=== PATIENT | female | born 1985 | race Caucasian/White ===

== ENCOUNTER 2025-02-13 13:56 | Emergency (ER) | payer SELFPAY ==
[2025-02-13 13:57] VITALS: BP 103/88; PULSE 107; RESP 16; TEMP 36.8; O2SAT 98; BMI 26.2
--- NOTE | 2025-02-13 14:32 | EKG12_ITS ---
Test Reason : Blood Pressure : */* mmHG Vent. Rate : 89 BPM Atrial Rate : 89 BPM P-R Int : 136 ms QRS Dur : 82 ms QT Int : 362 ms P-R-T Axes : 29 53 22 degrees QTcB Int : 440 ms Normal sinus rhythm Normal ECG Confirmed by OSIEL NGUYEN, NICHOLAS ([id number]), senior technical editor DORIS KRUSE ([id number]) on 02/14/2025 10:53:36 AM Referred By: AR Confirmed By: NICHOLAS CARTAGENA MD
--- NOTE | 2025-02-13 14:35 | EDS_ITS ---
HPI History of Present Illness Chief Complaint: Abn Labs Narrative Narrative: 39-year-old female who denies significant past medical history presents with her because of fevers that she has had for the last 12 days. She relates history that she started to not feel well on February 01. That was a . She noticed that she started having fevers. She takes Advil once a day. She denies any cough or shortness of breath, no dysuria or hematuria, no exacerbating or alleviating factors. She followed up with her primary care provider the following Wednesday and had laboratory work done. They noticed that on Wednesday she had a very low TSH, at 0.4. She continued to have fevers. She noticed that her neck was slightly swollen in the area of her thyroid. She had an ultrasound performed today at 1 PM, as an outpatient. She then proceeded to report to the emergency department regarding her continued fevers at the direction of the director furniture, Dr. Fajardo. [facility] Medical History Abnormal laboratory test Allergy/AdvReac Type Severity Reaction Status Date / Time No Known Allergies Allergy Verified 02/13/25 13:57 Social History Smoking Status: Never smoker ROS ROS ED ROS Narrative Review of systems positive for fevers as high as 101 ?F. Positive swelling of neck/thyroid. Mild difficulty swallowing/pain with swallowing. Denies cough or shortness of breath, no dysuria or hematuria. EXAM Physical Exam Narrative Exam Narrative: Afebrile. Vital signs noted. Nontoxic-appearing. HEENT examination does show mild swelling of thyroid area without crepitance. Neck soft and supple otherwise. Cardiovascular examination reveals mild tachycardia. Lungs clear to auscultation bilaterally. Abdomen soft nontender with positive bowel sounds. No guarding or rebound. Neurological examination nonfocal, nonlateralizing. No noted pedal edema. Const Vital Signs: 02/13/25 13:57 02/13/25 14:12 02/13/25 15:27 Temperature 98.2 F Temperature Source Oral Pulse Rate 107 H 84 Respiratory Rate 16 16 Respiratory Effort Normal Non-Labored Blood Pressure 103/88 H 105/58 L Blood Pressure Mean 93 73 Pulse Ox 98 98 Oxygen Delivery Method Room Air Room Air MDM MDM MDM Narrative Medical decision making narrative: Differential diagnosis includes but not limited to thyroiditis/thyroid storm versus dehydration versus other electrolyte abnormality. I reviewed her prior records. Her outpatient ultrasound has not been read as of yet. I will repeat a TSH. WBC count was obtained and reviewed. It is normal at 5.3, hemoglobin 11.9, hematocrit 36.0, platelet count normal at 371. CMP is significant for creatinine of 0.63, glucose 99. ALT slightly elevated 44 which I think is nonspecific, TSH is low at 0.007 with T4 of 15.7 and free T3 elevated at 9.1. Serum is negative. As I have not read the ultrasound as an outpatient, I did obtain CT of the soft tissue neck. On radiology report review, she has heterogeneous enhancement of the thyroid gland consistent with thyroiditis. Chest x-ray obtained to rule out pneumonia interpreted by myself independently shows no evidence of pneumonia or consolidation. I do not feel antibiotics are indicated. She is showing no clinical signs of a pneumonia or upper respiratory tract infection as well. EKG was obtained and interpreted by myself independently as normal sinus rhythm at 89 bpm without ectopy or acute ST changes. No STEMI, no tachycardia. In discussion with the patient, she was started on methimazole 5 mg by her primary care provider. I discussed the patient with endocrinology, Dr. Antonio Fajardo. She suggested increasing this to 10 mg daily, and her office will contact the patient tomorrow for close follow-up. It was not felt that she required antibiotics or admission to the hospital. Return instructions to the emergency department were reviewed. Disposition is discharged home in stable condition. History & Record Review Discussion w/independent historian: Patient Additional record(s) reviewed:: No prior records Lab Data Attestation: I reviewed the patient's lab results. Labs: Laboratory Results - last 24 hr 02/13/25 14:10 WBC 5.3 RBC 4.21 Hgb 11.9 L Hct 36.0 L MCV 85.5 MCH 28.3 MCHC 33.1 RDW Std Deviation 36.4 RDW Coeff of Hung 11.7 Plt Count 371 MPV 10.4 Immature Gran % (Auto) 0.200 Neut % (Auto) 42.7 L Lymph % (Auto) 41.4 H [place] % (Auto) 14.2 H Eos % (Auto) 0.9 Baso % (Auto) 0.6 Absolute Neuts (auto) 2.3 Absolute Lymphs (auto) 2.18 Nucleated RBC % 0 Sodium 138 Potassium 4.1 Chloride 102 Carbon Dioxide 25.6 Anion Gap 10 BUN 9 Creatinine 0.63 L Estim Creat Clear Calc 116.59 Est GFR (MDRD) Non-Af 114 BUN/Creatinine Ratio 15.0 Glucose 99 Calcium 9.5 Total Bilirubin 0.23 AST 27 ALT 44 H Alkaline Phosphatase 68 Total Protein 7.4 Albumin 3.9 Globulin 3.5 Albumin/Globulin Ratio 1.1 TSH 0.007 L Thyroxine (T4) 15.7 H Free T3 pg/dL 9.1 H Serum , Qual NEGATIVE Radiography Diagnostic Testing: Clinical Impression(s) from Imaging Studies Chest X-Ray 02/13/25 14:40 IMPRESSION: No Acute Findings. Reading Location: [address] Soft Tissue Neck CT 02/13/25 15:24 IMPRESSION: 1. Mildly heterogeneous enhancement of the thyroid gland. No mass. Non- specific. This can be seen with thyroiditis. Correlate with lab values. 2. No cervical mass or lymphadenopathy. 3. Partially imaged soft tissue density in the anterior superior mediastinum. 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 Non-specific. Nonemergent dedicated chest CT may be helpful. Thymoma has been associated with myasthenia gravis. Reading Location: [facility] Management Discussion w/another healthcare provider: [facility] (Dr. Antonio Fajardo, endocrinology) Discharge Plan Triage Chief Complaint: Abn Labs ED Provider: Jose Ramon Smiley Dx/Rx/DC Orders Clinical Impression: Thyroiditis, Fever, Low TSH level Instructions: Diagnosing a Thyroid Problem, Common Thyroid Problems, ED Fever Control (Adult) Primary Care Provider: Pearl Tejada Referrals: Pearl Tejada, [facility] [Primary Care Provider, Family Practice] Antonio Fajardo MD [[facility], Endocrinology] - 3-5 Days Activity Restrictions/Additional Instructions: Dr. Fajardo's office will contact you tomorrow for an appointment to be seen within the next few days. Increase your methimazole to 10 mg daily by mouth. Return with sustained high fever, new or worsening symptoms. Print Language: Citizen Of [place] Disposition Disposition: Home, Self Care
[2025-02-13] MEDS: 0.9% Normal Saline (1000mL) 1,000 ML 1000 ML IV (14:39)
[2025-02-13 14:40] LABS: Hematocrit 36.0 % (37-47); Hemoglobin 11.9 g/dL (12.0-15.0); Immature Granulocytes Count 0.010 X10^3/uL (0.0-0.0); Mean Corp Hgb Conc 33.1 g/dL (32-36); Mean Corpuscular Volume 85.5 fL (81-99); Mean Platelet Vol. 10.4 fl (6.2-12.0); NRBC Flagged by Analyzer 0 % (0-5); Platelet Count 371 K/mm3 (150-450); RBC Distribution Width CV 11.7 % (11.6-14.6); RBC Distribution Width SD 36.4 fl (35.1-43.9); Red Blood Count 4.21 M/mm3 (4.2-5.4); White Blood Count 5.3 K/mm3 (4.4-11.0)
--- NOTE | 2025-02-13 14:40 | RAD_ITS ---
PROCEDURE: CHEST 1 VIEW (PORTABLE) 02/13/2025 REASON FOR EXAM: FEVER TECHNIQUE: Frontal view of the chest. FINDINGS: The heart is normal in size. The lungs are clear. No acute osseous abnormalities. RAD/Chest 1 View (Portable) IMPRESSION: No Acute Findings. Reading Location: [id number]
[2025-02-13 15:00] LABS: Internal QC Validated? YES +Cl - CLEAR BKGD; Pregnancy, Serum, hCG Quali. NEGATIVE Negative; Record Kit Lot#, Serum Preg. 980607
--- NOTE | 2025-02-13 15:11 | ED.RN ---
called lab to inquire if thyroid labs received and yes.
[2025-02-13 15:12] LABS: AST(SGOT) 27 U/L (<=31); Alanine Aminotransfer ALT/SGPT 44 U/L (<=34); Albumin, Serum 3.9 g/dL (3.5-5.0); Alkaline Phosphatase 68 U/L (35-104); Anion Gap 10 (5-15); BUN 9 mg/dL (4-19); BUN/Creat Ratio 15.0 RATIO (10-20); Calcium,Total 9.5 mg/dL (7.6-11.0); Carbon Dioxide 25.6 mmol/L (21.0-32.0); Chloride 102 mmol/L (98-108); Estimated Creatinine Clearance 116.59 ml/min (50-250); Globulin 3.5 g/dL (2.2-4.2); Glucose 99 mg/dL (70-99); Potassium 4.1 mmol/L (3.3-5.1)
--- NOTE | 2025-02-13 15:24 | CT_ITS ---
PROCEDURE: SOFT TISSUE NECK WITH CONTRAST 02/13/2025 REASON FOR EXAM: THYROID SWELLING TECHNIQUE: Procedure Code: CTNEW Modality: CT Procedure: SOFT TISSUE NECK WITH CONTRAST CONTRAST: Isovue 370 VOLUME: 34 mL One or more dose reduction techniques were used (e.g., Automated exposure control, adjustment of the mA and/or kV according to patient size, use of iterative reconstruction technique). RADIATION DOSE SUMMARY: CTDlvol: 16 mGy DLP: 496 mGycm COMPARISON: None FINDINGS: Airway: Midline and patent. Salivary glands: Unremarkable. Lymph nodes: No cervical lymphadenopathy. Thyroid: Heterogeneous enhancement of the thyroid gland without discrete focal mass. Vasculature: A bovine arch is present, a normal variant. Blood vessels are otherwise patent. Orbits: Normal Paranasal sinuses and mastoids: Clear Lung apices: Clear Upper mediastinum: Soft tissue density in the anterior superior mediastinum is non-specific. The imaged portion is 2.5 x 1.5 cm. Bones: Straightened CT/Soft Tissue Neck WITH Contrast IMPRESSION: 1. Mildly heterogeneous enhancement of the thyroid gland. No mass. Non-speci fic. This can be seen with thyroiditis. Correlate with lab values. 2. No cervical mass or lymphadenopathy. 3. Partially imaged soft tissue density in the anterior superior mediastinum. 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 Non-specific. Nonemergent dedicated chest CT may be helpful. Thymom a has been associated with myasthenia gravis. Reading Location: [id number]
[2025-02-13 15:27] VITALS: BP 105/58; PULSE 84; RESP 16; O2SAT 98
[2025-02-13 15:43] LABS: Free T3 9.1 pg/mL (2.18-3.98); T4 Total, Thyroxin 15.7 ug/dL (4.8-13.9)
[2025-02-13 16:23] VITALS: BP 123/79; PULSE 90; RESP 18; TEMP 37.2; O2SAT 99
[2025-02-13 16:30] LABS: Mucous, Urine 0 SEEN /hpf (<or=2+)
[2025-02-13 16:34] LABS: Color, Urine Yellow (Yellow); Glucose, Dipstick Normal (Normal); Ketone-Dipstick Negative (Negative); Leukocyte Esterase-Dipstick Negative /ul (Negative); Nitrite-Dipstick Negative (Negative); Occult Blood-Urine 10 /ul (Negative); Protein-Dipstick Negative (Negative); Specific Gravity, Urine 1.010 (1.002-1.030); Urine Bilirubin Dipstick Negative (Negative)
[2025-02-13 17:02] LABS: Red Blood Cells-Urine 0-5 SEEN /hpf (0-5); Squamous Epithelial Cells - UA 0-5 SEEN /hpf (5-10)
== END 2025-02-13 16:34 | disposition home or self-care (01) ==
PROVIDERS: Emergency Provider Emergency Medicine; PCP Nurse Practitioner Family; Visit Provider Emergency Medicine
DX: E06.9 Thyroiditis, unspecified (principal); R50.9 Fever, unspecified
CPT/HCPCS: 70491; 71045; 80053; 81001; 84436; 84443; 84481; 84703; 85025; 93005; 99284; Q9967; A4216

== ENCOUNTER → 2025-02-13 | Outpatient (CLI) | payer SELFPAY ==
--- NOTE | 2025-02-13 13:03 | US_ITS ---
PROCEDURE: THYROID 02/13/2025 REASON FOR EXAM: ACUTE THYROIDITIS TECHNIQUE: Procedure Code: USTHY Modality: US Procedure: THYROID COMPARISON: Prior CT scan of the neck dated February 13, 2025. FINDINGS: Right thyroid lobe size: 4.8 cm by 2 cm x 1.9 cm Left thyroid lobe size: 4.1 cm 1.5 cm 1.7 cm cm Isthmus: 0.7 cm Background parenchymal echotexture is heterogeneous echotexture. There are no thyroid nodules seen. Increased vascularity. US/Thyroid IMPRESSION: Heterogeneous echotexture of both lobes of the thyroid gland without in the nod ular densities seen. RECOMMENDATION: Based on most suspicious nodule. Nodule size = largest diameter Only evaluate nodule if =>5 mm. Growth > 20% in 2 dimensions = worsening. Follow up to 4 nodules. Recommend biopsy for no more than 2 nodules. Reading Location: [place] [id number]
== END | disposition home or self-care (01) ==
PROVIDERS: PCP Nurse Practitioner Family; Referring Provider Nurse Practitioner Family; Visit Provider Nurse Practitioner Family
DX: E06.0 Acute thyroiditis (principal)
CPT/HCPCS: 76536

== ENCOUNTER → 2025-03-26 | Outpatient (CLI) | payer SELFPAY ==
--- NOTE | 2025-03-26 18:58 | CT_ITS ---
PROCEDURE: CHEST WITHOUT CONTRAST 03/26/2025 REASON FOR EXAM: PERSISTENT HYPERPLASIA OF THYMUS TECHNIQUE: Chest CT without contrast. Coronal and Sagittal reconstruction series were provided. One or more dose reduction techniques were used (e.g., Automated exposure control, adjustment of the mA and/or kV according to patient size, use of iterative reconstruction technique RADIATION DOSE SUMMARY: CTDlvol: 10.93 mGy DLP: 398.7 mGycm COMPARISON: 13 February 2025 FINDINGS: Hardware: None. Lymph nodes: No mediastinal lymphadenopathy. Mediastinal lymph nodes contain calcification which can be seen with chronic granulomatous disease. Subtle anterior superior mediastinal soft tissue fullness measuring up to 2.2 cm. Heart and Vasculature: No cardiomegaly or pericardial effusion. The aorta and superior vena cava are within normal limits. Coronary Artery Calcifications: Absent Lungs and Airways: The lungs are adequately aerated bilaterally without pleural effusion, pneumothorax, or focal airspace disease. Several calcified granulomas are scattered throughout. No suspicious nodule or mass. Upper Abdomen: 2.7 cm in length hepatic cyst. Several coarse splenic calcifications. Bones: CT/Chest without Contrast IMPRESSION: Coronary artery calcification (CAC) is absent 1. Subtle, 2.2 cm superior mediastinal soft tissue mass which could represent residual thymic tissue. Consider repeat examination in 4 months with use of contrast to document stabil ity. 2. 2.7 cm right hepatic cyst. 3. Pulmonary, mediastinal, and splenic chronic granulomatous disease. Reading Location: [id number]
--- OUTSIDE RECORDS SUMMARY | 2025-03-26 19:14 | XMS RPT_ITS | CCD ---
Author Organization [facility] Care Team Providers Care Finish Cleaner Name Role Phone SCOT YOUNG Attending Unavailable SCOT YOUNG Primary Care Unavailable SCOT YOUNG Admitting Unavailable ANA ROSA SANCHEZ Consulting Unavailable PROVIDER, UNKNOWN Consulting Unavailable ELIS GOULD Attending Unavailable ELIS GOULD Primary Care Unavailable ELIS GOULD Admitting Unavailable ANA ROSA SANCHEZ Consulting Unavailable PROVIDER, UNKNOWN Consulting Unavailable [place] SPLITTING MACHINE OPERATOR HELPER-C, Pearl Primary Care Physician Cas[place]ohm SPLITTING MACHINE OPERATOR HELPER-C, Pearl Attending Physician [place]m SPLITTING MACHINE OPERATOR HELPER-C, Pearl Referring Provider Jose Ramon Smiley MD Attending Physician Jose Ramon Smiley MD Emergency Department Physician Casbohm, Pearl Primary Care Unavailable Jose Ramon Smiley Attending Unavailable Casbohm, Pearl Primary Care Unavailable Casbohm, Pearl Attending Unavailable Casbohm, Pearl Referring Unavailable Casbohm, Pearl Primary Care Unavailable Casbohm, Pearl Attending Unavailable Casbohm, Pearl Referring Unavailable OMID NUÑEZ MD Attending Unavailable Allergies Allergy Classification Reported Allergen(s) Allergy Type Date of Onset Reaction(s) Facility (1 source) Aspirin Drug Allergy [facility] Repository Problems Problem Classification Problem Date Documented Da te Episodic/Chronic Fever of unknown origin (2 sources) Fever; Translations: [Fever, unspecified] Onset: 02-21-2025 02-21-2025 Episodic Other endocrine disorders (1 source) Persistent hyperplasia of thymus; 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-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 Other screening for suspected conditions (not mental disorders or infectious disease) (1 source) Decreased thyroid stimulating hormone level; Translations: [Other specified abnormal findings of blood chemistry] 02-21-2025 Episodic Thyroid disorders (2 sources) Thyroiditis; Translations: [Thyroiditis, unspecified] Onset: 02-26-2025 02-21-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 Results Test Name Value Interpretation Reference Range Facility Maria Guadalupe 03-12-2025 TSI <0.10 Normal 0.00-0.55 [facility] Comment on above: Result Comment: Perf ormed At: [facility] [address] [id number] Panchito Stout MD Ph:[phone] Performed By: #### F T4, ANEU, CMP, ADIFF, GFR, FT3, CBC, [id number] #### [address] [address] .Auto Diffon 03-09-2025 Basophil, Absolute 0.0 10 3/mcL Normal 0.0-0.3 [facility] Comment on above: Performed By: #### F T4, ANEU, CMP, ADIFF, GFR, FT3, CBC, 546122 #### [address] [address] Basophils/100 WBC (Bld) 0.6 % Normal 0.0-2.5 [facility] Comment on above: Performed By: #### F T4, ANEU, CMP, ADIFF, GFR, FT3, CBC, 195658 #### [address] [address] Eosinophil, Absolute 0.0 10 3/mcL Normal 0.0-0.7 [facility] Comment on above: Performed By: #### F T4, ANEU, CMP, ADIFF, GFR, FT3, CBC, 607425 #### [address] [address] Eosinophils/100 WBC (Bld) 1.6 % Normal 0.0-6.0 [facility] Comment on above: Performed By: #### F T4, ANEU, CMP, ADIFF, GFR, FT3, CBC, 017966 #### [address] [address] Lymphocyte, Absolute 1.2 10 3/mcL Normal 0.9-4.3 [facility] Comment on above: Performed By: #### F T4, ANEU, CMP, ADIFF, GFR, FT3, CBC, 909817 #### [address] [address] Lymphocytes/100 WBC (Bld) 39.0 % Normal 20.0-40.0 [facility] Comment on above: Performed By: #### F T4, ANEU, CMP, ADIFF, GFR, FT3, CBC, 775413 #### [address] [address] Monocyte, Absolute 0.4 10 3/mcL Normal 0.1-1.4 [facility] Comment on above: Performed By: #### F T4, ANEU, CMP, ADIFF, GFR, FT3, CBC, 600785 #### [address] [address] Monocytes/100 WBC (Bld) 12.3 % Normal 2.0-13.0 [facility] Comment on above: Performed By: #### F T4, ANEU, CMP, ADIFF, GFR, FT3, CBC, 323660 #### [address] [address] Neutrophils/100 WBC (Bld) 46.5 % Low 50.0-75.0 [facility] Comment on above: Performed By: #### F T4, ANEU, CMP, ADIFF, GFR, FT3, CBC, 212591 #### [address] [address] .GFRon 03-09-2025 Estimated Glomerular Filtration Rate 113 ml/min/1.73sqm Normal [facility] Comment on above: Result Comment: Stages of Chronic Kidney Disease (CKD) Stage Description eGFR(ml/min/1.73 sq.m.) CKD 1 Normal kidney function or >=90 normal kindney function with possible kidney damage (ex. Proteinuria) CKD 2 Kidney damage with mild loss 60-89 of kidney function CKD 3a Mild to moderate loss of kidney 45-59 function CKD 3b Moderate to severe loss of 30-44 of kindey function CKD 4 Severe loss of kidney function 15-29 CKD 5 Kidney failure <15 Note: (go live 2024) the eGFR calculation was updated to the 2020 CKD-EPI creatinine equation without a race factor to calculate the eGFR results. Performed By: #### F T4, ANEU, CMP, ADIFF, GFR, FT3, CBC, 384000 #### [place] [address] .NEUABSon 03-09-2025 Neutrophil, Absolute 1.4 10 3/mcL Low 2.3-8.1 [facility] Comment on above: Performed By: #### F T4, ANEU, CMP, ADIFF, GFR, FT3, CBC, 394179 #### [place] [address] CBCon 03-09-2025 Erythrocyte distribution width (RBC) [Ratio] 14.1 % Normal 11.5-15.5 [facility] Comment on above: Performed By: #### F T4, ANEU, CMP, ADIFF, GFR, FT3, CBC, 885263 #### [place] [address] Hematocrit (Bld) [Volume fraction] 40.8 % Normal 34.0-46.0 [facility] Comment on above: Performed By: #### F T4, ANEU, CMP, ADIFF, GFR, FT3, CBC, 048717 #### [place] [address] Hgb 13.4 G/dL Normal 12.0-16.0 [facility] Comment on above: Performed By: #### F T4, ANEU, CMP, ADIFF, GFR, FT3, CBC, 906912 #### [place] [address] MCH (RBC) [Entitic mass] 27.9 pg Normal 27.0-33.0 [facility] Comment on above: Performed By: #### F T4, ANEU, CMP, ADIFF, GFR, FT3, CBC, 625556 #### [place] [address] MCHC 32.8 G/dL Normal 32.0-36.0 [facility] Comment on above: Performed By: #### F T4, ANEU, CMP, ADIFF, GFR, FT3, CBC, 771978 #### [address] [address] MCV (RBC) [Entitic vol] 85.1 fL Normal 80.0-99.0 [facility] Comment on above: Performed By: #### F T4, ANEU, CMP, ADIFF, GFR, FT3, CBC, 126803 #### [place] [id number] Platelet 221 10 3/mcL Normal 150-450 [facility] Comment on above: Performed By: #### F T4, ANEU, CMP, ADIFF, GFR, FT3, CBC, 782466 #### [place] [id number] Platelet mean volume (Bld) [Entitic vol] 9.1 fL Normal 6.6-10.5 [facility] Comment on above: Performed By: #### F T4, ANEU, CMP, ADIFF, GFR, FT3, CBC, 983820 #### [place] [id number] RBC 4.79 10 6/mcL Normal 4.10-5.30 [facility] Comment on above: Performed By: #### F T4, ANEU, CMP, ADIFF, GFR, FT3, CBC, 347868 #### [place] [id number] WBC 3.1 10 3/mcL Low 4.5-10.8 [facility] Comment on above: Performed By: #### F T4, ANEU, CMP, ADIFF, GFR, FT3, CBC, 194769 #### [place] [id number] CMPon 03-09-2025 Albumin Level 3.8 G/dL Normal 3.2-4.8 [facility] Comment on above: Performed By: #### F T4, ANEU, CMP, ADIFF, GFR, FT3, CBC, 972055 #### [place] [id number] Albumin/Globulin [Mass ratio] 1.1 {ratio} Normal 0.9-1.6 [facility] Comment on above: Performed By: #### F T4, ANEU, CMP, ADIFF, GFR, FT3, CBC, 472331 #### [address] [address] ALP [Catalytic activity/Vol] 44 U/L Normal 38-126 [facility] Comment on above: Performed By: #### F T4, ANEU, CMP, ADIFF, GFR, FT3, CBC, 868786 #### [address] [address] ALT [Catalytic activity/Vol] 29 U/L Normal 10-49 [facility] Comment on above: Performed By: #### F T4, ANEU, CMP, ADIFF, GFR, FT3, CBC, 463928 #### [address] [address] AST [Catalytic activity/Vol] 20 U/L Normal 8-34 [facility] Comment on above: Performed By: #### F T4, ANEU, CMP, ADIFF, GFR, FT3, CBC, 967337 #### [address] [address] Bili Total 0.30 mg/dL Normal 0.20-1.20 [facility] Comment on above: Result Comment: Use of this assay is not recommended for patients undergoing treatment with eltrombopag due to the potential for falsely elevated results. Performed By: #### F T4, ANEU, CMP, ADIFF, GFR, FT3, CBC, 667601 #### [address] [address] BUN/Creatinine Ratio 10.8 ratio Normal 10.0-22.0 [facility] Comment on above: Performed By: #### F T4, ANEU, CMP, ADIFF, GFR, FT3, CBC, 867789 #### [address] [address] Calcium [Mass/Vol] 9.4 mg/dL Normal 8.7-10.4 [facility] Comment on above: Performed By: #### F T4, ANEU, CMP, ADIFF, GFR, FT3, CBC, 309716 #### [address] [address] Chloride [Moles/Vol] 104 mmol/L Normal 98-110 [facility] Comment on above: Performed By: #### F T4, ANEU, CMP, ADIFF, GFR, FT3, CBC, 885729 #### [address] [address] CO2 [Moles/Vol] 28 mmol/L Normal 22-32 [facility] Comment on above: Performed By: #### F T4, ANEU, CMP, ADIFF, GFR, FT3, CBC, 367519 #### [place] [address] Creatinine [Mass/Vol] 0.65 mg/dL Normal 0.50-1.20 [facility] Comment on above: Result Comment: Test ing performed on [employer] analyzer using enzymatic creatinine methodology. Performed By: #### F T4, ANEU, CMP, ADIFF, GFR, FT3, CBC, 446268 #### [place] [address] Electrolyte Balance 8.0 mEq/L Normal 4.0-15.0 [facility] Comment on above: Performed By: #### F T4, ANEU, CMP, ADIFF, GFR, FT3, CBC, 512616 #### [place] [id number] Globulin 3.4 G/dL Normal 2.5-4.2 [facility] Comment on above: Performed By: #### F T4, ANEU, CMP, ADIFF, GFR, FT3, CBC, 341009 #### [place] [address] Glucose [Mass/Vol] 92 mg/dL Normal 70-110 [facility] Comment on above: Performed By: #### F T4, ANEU, CMP, ADIFF, GFR, FT3, CBC, 981601 #### [place] [address] Potassium [Moles/Vol] 4.3 mmol/L Normal 3.5-5.0 [facility] Comment on above: Performed By: #### F T4, ANEU, CMP, ADIFF, GFR, FT3, CBC, 177196 #### [address] [address] Sodium [Moles/Vol] 140 mmol/L Normal 136-145 [facility] Comment on above: Performed By: #### F T4, ANEU, CMP, ADIFF, GFR, FT3, CBC, 447149 #### [address] [address] Total Protein 7.2 G/dL Normal 5.7-8.2 [facility] Comment on above: Performed By: #### F T4, ANEU, CMP, ADIFF, GFR, FT3, CBC, 910990 #### [place] [address] Urea nitrogen [Mass/Vol] 7.0 mg/dL Low 8.0-22.0 [facility] Comment on above: Performed By: #### F T4, ANEU, CMP, ADIFF, GFR, FT3, CBC, 918379 #### [place] [id number] FT3on 03-09-2025 Free T3 [Mass/Vol] 2.37 pg/mL Normal 2.30-4.20 [facility] Comment on above: Performed By: #### F T4, ANEU, CMP, ADIFF, GFR, FT3, CBC, 574529 #### [address] [address] FT4on 03-09-2025 Free T4 [Mass/Vol] 0.60 ng/dL Low 0.89-1.76 [facility] Comment on above: Result Comment: No te - New Reference Range in effect 19 Performed By: #### F T4, ANEU, CMP, ADIFF, GFR, FT3, CBC, 373542 #### [place] [address] LABORATORYOrdered By: SYSTEM SYSTEM on 03-09-2025 Albumin BCP dye [Mass/Vol] 3.8 G/dL Normal 3.2 - 4.8 G/dL ADM SS Albumin/Globulin [Mass ratio] 1.1 {ratio} Normal 0.9 - 1.6 ratio AH ADM SS ALP [Catalytic activity/Vol] 44 U/L Normal 38 - 126 U/L ADM SS ALT No additional P-5'-P [Catalytic activity/Vol] 29 U/L Normal 10 - 49 U/L ADM SS AST [Catalytic activity/Vol] 20 U/L Normal 8 - 34 U/L ADM SS Basophils (Bld) [#/Vol] 0.0 103/mcL Normal 0.0 - 0.3 10^3/mcL Workflow SS Basophils/100 WBC (Bld) 0.6 % Normal 0.0 - 2.5 % Workflow SS Bilirubin [Mass/Vol] 0.30 mg/dL Normal 0.20 - 1.20 mg/dL ADM SS Comment on above: Interpretive Data: U se of this assay is not recommended for patients undergoing treatment with eltrombopag due to the potential for falsely elevated results. Calcium [Mass/Vol] 9.4 mg/dL Normal 8.7 - 10. 4 mg/dL ADM SS Chloride [Moles/Vol] 104 mmol/L Normal 98 - 11 0 mEq/L ADM SS CO2 [Moles/Vol] 28 mmol/L Normal 22 - 32 mEq/L ADM SS Creatinine [Mass/Vol] 0.65 mg/dL Normal 0.50 - 1.20 mg/dL ADM SS Comment on above: Interpretive Data: T esting performed on [employer] analyzer using enzymatic creatinine methodology. Electrolyte Balance 8.0 mEq/L Normal 4.0 - 15 .0 mEq/L ADM SS Eosinophils (Bld) [#/Vol] 0.0 103/mcL Normal 0.0 - 0.7 10^3/mcL Workflow SS Eosinophils/100 WBC (Bld) 1.6 % Normal 0.0 - 6.0 % Workflow SS Erythrocyte distribution width (RBC) [Ratio] 14.1 % Normal 11.5 - 15.5 % Workflow SS Free T3 [Mass/Vol] 2.37 pg/mL Normal 2.30 - 4. 20 pg/mL ADM SS Free T4 [Mass/Vol] 0.60 ng/dL Low 0.89 - 1. 76 ng/dL ADM SS Comment on above: Interpretive Data: * *Note - New Reference Range in effect 19 Globulin 3.4 G/dL Normal 2.5 - 4.2 G/dL AH ADM SS GLOMERULAR FILTRATION RATE/1.73 SQ M.PREDICTED:ARVRAT:PT:SE R/PLAS/BLD:QN:CREATININE -BASED FORMULA (CKD-EPI 2020) 113 ml/min/1.73sqm Invalid Interpretation Code Chemistry S Comment on above: Interpretive Data: Stages of Chronic Kidney Disease (CKD) Stage Description eGFR(ml/min/1.73 sq.m.) CKD 1 Normal kidney function or >=90 normal kindney function with possible kidney damage (ex. Proteinuria) CKD 2 Kidney damage with mild loss 60-89 of kidney function CKD 3a Mild to moderate loss of kidney 45-59 function CKD 3b Moderate to severe loss of 30-44 of kindey function CKD 4 Severe loss of kidney function 15-29 CKD 5 Kidney failure <15 Note: (go live 2024) the eGFR calculation was updated to the 2020 CKD-EPI creatinine equation without a race factor to calculate the eGFR results. Glucose [Mass/Vol] 92 mg/dL Normal 70 - 110 mg/dL AH ADM SS Hematocrit (Bld) [Volume fraction] 40.8 % Normal 34.0 - 46.0 % AH Workflow SS Hemoglobin (Bld) [Mass/Vol] 13.4 G/dL Normal 12.0 - 16.0 G/dL AH Workflow SS Lymphocytes (Bld) [#/Vol] 1.2 103/mcL Normal 0.9 - 4.3 10^3/mcL AH Workflow SS Lymphocytes/100 WBC (Bld) 39.0 % Normal 20.0 - 40.0 % AH Workflow SS MCH (RBC) [Entitic mass] 27.9 pg Normal 27. 0 - 33.0 pg AH Workflow SS MCHC 32.8 G/dL Normal 32.0 - 36.0 G/dL AH Workflow SS MCV (RBC) [Entitic vol] 85.1 fL Normal 80.0 - 99.0 fL AH Workflow SS Monocytes (Bld) [#/Vol] 0.4 103/mcL Normal 0.1 - 1.4 10^3/mcL AH Workflow SS Monocytes/100 WBC (Bld) 12.3 % Normal 2.0 - 13.0 % AH Workflow SS Neutrophils (Bld) [#/Vol] 1.4 103/mcL Low 2.3 - 8.1 10^3/mcL AH Workflow SS Neutrophils/100 WBC (Bld) 46.5 % Low 50.0 - 75.0 % AH Workflow SS Platelet mean volume (Bld) [Entitic vol] 9.1 fL Normal 6.6 - 10.5 fL AH Workflow SS Platelets (Bld) [#/Vol] 221 103/mcL Normal 150 - 450 10^3/mcL AH Workflow SS Potassium [Moles/Vol] 4.3 mmol/L Normal 3.5 - 5.0 mEq/L AH ADM SS Protein [Mass/Vol] 7.2 G/dL Normal 5.7 - 8.2 G/dL AH ADM SS RBC (Bld) [#/Vol] 4.79 106/mcL Normal 4.10 - 5.3 0 10^6/mcL AH Workflow SS Sodium [Moles/Vol] 140 mmol/L Normal 136 - 145 mEq/L ADM SS Urea nitrogen [Mass/Vol] 7.0 mg/dL Low 8.0 - 22.0 mg/dL AH ADM SS Urea nitrogen/Creatinine [Mass ratio] 10.8 ratio Normal 10.0 - 22.0 ratio AH ADM SS WBC (Bld) [#/Vol] 3.1 103/mcL Low 4.5 - 10.8 10^3/mcL AH Workflow SS 12 Lead EKGon 02-13-2025 12 Lead EKG [facility] Cardiovascular Services [address] [place] [address] 12 Lead EKG 02/13/25 1438 MR#: [id number] Acct: [id number] Name: MILA GARCIA Rep #: [id number] : 1985 39 From: Devin Vaughn MD Attending Dr: Status: DEP ER Ordering Dr: Jose Ramon Smiley MD Date: 02/13/25 Location: ED Sex: F C Admitted: Test Reason : Blood Pressure : */* mmHG Vent. Rate : 89 BPM Atrial Rate : 89 BPM P-R Int : 136 ms QRS Dur : 82 ms QT Int : 362 ms P-R-T Axes : 29 53 22 degrees QTcB Int : 440 ms Normal sinus rhythm Normal ECG Confirmed by OSIEL NGUYEN, DEVIN ([id number]), editor greeting card DORIS KRUSE ([id number]) on 02/14/2025 10:53:36 AM Referred By: AR Confirmed By: DEVIN VAUGHN MD 02/14/25 6336 Date Devin Vaughn MD CC: JADEN Tejada; Dr. Jose Ramon Smiley MD Signed Normal [facility] Absolute lymphocyte countOrd ered By: Jose Ramon Smiley on 02-13-2025 Lymphocytes Auto (Unsp spec) [#/Vol] 2.18 10*3/uL 0.83-4.51 [facility] Absolute neutrophil countOrd ered By: Jose Ramon Smiley on 02-13-2025 Neutrophils (Bld) [#/Vol] 2.3 10*3/uL 2.0-7.7 [facility] Anion gap in Serum or Plasma Ordered By: Jose Ramon Smiley on 02-13-2025 Anion gap [Moles/Vol] 10 mmol/L 09-14 [facility] Automated lymphocyte count a s percentage of total leukocytesOrdered By: Jose Ramon Smiley on 02-13-2025 Lymphocytes/100 WBC Auto (Unsp spec) 41.4 % High 19-41 [facility] BUN/creatinine ratioOrdered By: Jose Ramon Smiley on 02-13-2025 Urea nitrogen/Creatinine [Mass ratio] 15.0 mg/mg 10 [facility] Basophil percentageOrdered B y: Jose Ramon Smiley on 02-13-2025 Basophils/100 WBC (Bld) 0.6 % 0-1 [facility] Bilirubin Test strip Ql (U)O rdered By: Jose Ramon Smiley on 02-13-2025 Bilirubin Ql (U) Negative Negative [facility] Bilirubin, totalOrdered By: Jose Ramon Smiley on 02-13-2025 Bilirubin [Mass/Vol] 0.23 mg/dL 0.00-1.30 [facility] CBC W/Diff, Automatedon 01-31 Absolute Lymph 2.18 X10 3/uL Normal 0.83-4.51 [facility] Comment on above: Performed By: #### L 100.0100, L500.4050, L501.9520, L700.6800 #### [facility] [address] [place], [address] Absolute Neut 2.3 X10 3/uL Normal 2.0-7.7 [facility] Comment on above: Performed By: #### L 100.0100, L500.4050, L501.9520, L700.6800 #### [facility] [address] [place], [address] Basophils/100 WBC (Bld) 0.6 % Normal 0-1 [facility] Comment on above: Performed By: #### L 100.0100, L500.4050, L501.9520, L700.6800 #### [facility] [address] [place], [address] Eosinophils/100 WBC (Bld) 0.9 % Normal 0-5 [facility] Comment on above: Performed By: #### L 100.0100, L500.4050, L501.9520, L700.6800 #### [facility] [address] [place], [address] Erythrocyte distribution width (RBC) [Ratio] 11.7 % Normal 11.6-14.6 [facility] Comment on above: Performed By: #### L 100.0100, L500.4050, L501.9520, L700.6800 #### [facility] [address] [place], [address] Hematocrit (Bld) [Volume fraction] 36.0 % Low 37-47 [facility] Comment on above: Performed By: #### L 100.0100, L500.4050, L501.9520, L700.6800 #### [facility] [address] [place], [address] Hemoglobin (Bld) [Mass/Vol] 11.9 g/dL Low 12.0-15.0 [facility] Comment on above: Performed By: #### L 100.0100, L500.4050, L501.9520, L700.6800 #### [facility] [address] [place], [address] IG% 0.200 Normal 0.0-0.9 [facility] Comment on above: Result Comment: IG% - Immature Granulocytes (promyelocytes, myelocytes and metamyelocytes) > 1% indicates that a LEFT SHIFT is Present. Performed By: #### L 100.0100, L500.4050, L501.9520, L700.6800 #### [facility] [address] [place], [address] Lymphocytes/100 WBC (Bld) 41.4 % High 19-41 [facility] Comment on above: Performed By: #### L 100.0100, L500.4050, L501.9520, L700.6800 #### [facility] [address] [place], [address] MCH (RBC) [Entitic mass] 28.3 pg Normal 27.0-32.0 [facility] Comment on above: Performed By: #### L 100.0100, L500.4050, L501.9520, L700.6800 #### [facility] [address] [place], [address] MCHC (RBC) [Mass/Vol] 33.1 g/dL Normal 32-36 [facility] Comment on above: Performed By: #### L 100.0100, L500.4050, L501.9520, L700.6800 #### [facility] [address] [place], [address] MCV (RBC) [Entitic vol] 85.5 fL Normal 81-99 [facility] Comment on above: Performed By: #### L 100.0100, L500.4050, L501.9520, L700.6800 #### [facility] [address] [place], [address] Monocytes/100 WBC (Bld) 14.2 % High 0-10 [facility] Comment on above: Performed By: #### L 100.0100, L500.4050, L501.9520, L700.6800 #### [facility] [address] [place], [address] Neutrophils/100 WBC (Bld) 42.7 % Low 47-70 [facility] Comment on above: Performed By: #### L 100.0100, L500.4050, L501.9520, L700.6800 #### [facility] [address] [place], [address] Nucleated RBC (Bld) [#/Vol] 0 10*3/uL Normal 0-5 [facility] Comment on above: Performed By: #### L 100.0100, L500.4050, L501.9520, L700.6800 #### [facility] [address] [place], [address] Platelet mean volume (Bld) [Entitic vol] 10.4 fL Normal 6.2-12.0 [facility] Comment on above: Performed By: #### L 100.0100, L500.4050, L501.9520, L700.6800 #### [facility] [address] [place], [address] Platelets (Bld) [#/Vol] 371 10*3/uL Normal 150-450 [facility] Comment on above: Performed By: #### L 100.0100, L500.4050, L501.9520, L700.6800 #### [facility] [address] [place], [address] RBC (Bld) [#/Vol] 4.21 10*6/uL Normal 4.2-5.4 [facility] Comment on above: Performed By: #### L 100.0100, L500.4050, L501.9520, L700.6800 #### [facility] [address] [place], [address] RDW SD 36.4 fl Normal 35.1-43.9 [facility] Comment on above: Performed By: #### L 100.0100, L500.4050, L501.9520, L700.6800 #### [facility] [address] [place], [address] WBC (Bld) [#/Vol] 5.3 10*3/uL Normal 4.4-11.0 [facility] Comment on above: Performed By: #### L 100.0100, L500.4050, L501.9520, L700.6800 #### [facility] [address] [place], [address] Carbon dioxide, total [Moles /volume] in Central venous bloodOrdered By: Jose Ramon Smiley on 02-13-2025 CO2 [Moles/Vol] 25.6 mmol/L 21.0-32.0 [facility] Chest 1 View (Portable)on Chest 1 View (Portable) [facility] Services [address] [place] [address] Chest 1 View (Portable) MR#: [id number] Acct: [id number] Name: MILA GARCIA Rep #: [id number] : 1985 F 39 From: Ji Colin MD PCP: JADEN Lee Status: REG ER Study: Chest 1 View (Portable) Date of Exam: 02/13/25 Exam# [id number] Ordering Dr: Jose Ramon Smiley MD PROCEDURE: CHEST 1 VIEW (PORTABLE) 02/13/2025 REASON FOR EXAM: FEVER TECHNIQUE: Frontal view of the chest. FINDINGS: The heart is normal in size. The lungs are clear. No acute osseous abnormalities. RAD/Chest 1 View (Portable) IMPRESSION: No Acute Findings. Reading Location: [id number] CC: JADEN Tejada; Dr. Jose Ramon Smiley MD Waiter/Waitress Informal: Signed Normal [facility] Chloride assayOrdered By: Jones Smiley on 02-13-2025 Chloride [Moles/Vol] 102 mmol/L 98-108 [facility] Comprehensive Metabolic Prof ilon 02-13-2025 Albumin [Mass/Vol] 3.9 g/dL Normal 3.5-5.0 [facility] Comment on above: Performed By: #### L 100.0100, L500.4050, L501.9520, L700.6800 #### [facility] [address] [place], [address] Albumin/Globulin [Mass ratio] 1.1 {ratio} Normal 0.9-2.4 [facility] Comment on above: Performed By: #### L 100.0100, L500.4050, L501.9520, L700.6800 #### [facility] [address] [place], [address] ALK PHOS 68 U/L Normal 35-104 [facility] Comment on above: Performed By: #### L 100.0100, L500.4050, L501.9520, L700.6800 #### [facility] [address] [place], [address] ALT [Catalytic activity/Vol] 44 U/L High <=34 [facility] Comment on above: Performed By: #### L 100.0100, L500.4050, L501.9520, L700.6800 #### [facility] [address] [place], [address] AST [Catalytic activity/Vol] 27 U/L Normal <=31 [facility] Comment on above: Performed By: #### L 100.0100, L500.4050, L501.9520, L700.6800 #### [facility] [address] [place], [address] Bilirubin [Mass/Vol] 0.23 mg/dL Normal 0.00-1.30 [facility] Comment on above: Performed By: #### L 100.0100, L500.4050, L501.9520, L700.6800 #### [facility] [address] [place], [address] BUN/CRE 15.0 RATIO Normal 10-20 [facility] Comment on above: Performed By: #### L 100.0100, L500.4050, L501.9520, L700.6800 #### [facility] [address] [place], [address] Calcium [Mass/Vol] 9.5 mg/dL Normal 7.6-11.0 [facility] Comment on above: Performed By: #### L 100.0100, L500.4050, L501.9520, L700.6800 #### [facility] [address] [place], [address] Chloride [Moles/Vol] 102 mmol/L Normal 98-108 [facility] Comment on above: Performed By: #### L 100.0100, L500.4050, L501.9520, L700.6800 #### [facility] [address] [place], [address] CO2 [Moles/Vol] 25.6 mmol/L Normal 21.0-32.0 [facility] Comment on above: Performed By: #### L 100.0100, L500.4050, L501.9520, L700.6800 #### [facility] [address] [place], [address] Creatinine [Mass/Vol] 0.63 mg/dL Low 0.70-1.20 [facility] Comment on above: Performed By: #### L 100.0100, L500.4050, L501.9520, L700.6800 #### [facility] [address] [place], [address] ECRCL 116.59 ml/min Normal 50-250 [facility] Comment on above: Performed By: #### L 100.0100, L500.4050, L501.9520, L700.6800 #### [facility] [address] [place], [address] GAP 10 Normal 5-15 [facility] Comment on above: Performed By: #### L 100.0100, L500.4050, L501.9520, L700.6800 #### [facility] [address] [place], [address] GFR/1.73 sq M.predicted among non-blacks MDRD (S/P/Bld) [Vol rate/Area] 114 mL/min/{1.73_m2} Normal >60 [facility] Comment on above: Result Comment: mL/m in/1.73m2 CKD-EPI Creatinine Equation (2020) Performed By: #### L 100.0100, L500.4050, L501.9520, L700.6800 #### [facility] [address] [place], [address] Globulin (S) [Mass/Vol] 3.5 g/dL Normal 2.2-4.2 [facility] Comment on above: Performed By: #### L 100.0100, L500.4050, L501.9520, L700.6800 #### [facility] [address] [place], [address] Glucose [Mass/Vol] 99 mg/dL Normal 70-99 [facility] Comment on above: Performed By: #### L 100.0100, L500.4050, L501.9520, L700.6800 #### [facility] [address] [place], [address] Potassium [Moles/Vol] 4.1 mmol/L Normal 3.3-5.1 [facility] Comment on above: Performed By: #### L 100.0100, L500.4050, L501.9520, L700.6800 #### [facility] [address] [place], [address] Sodium [Moles/Vol] 138 mmol/L Normal 133-145 [facility] Comment on above: Performed By: #### L 100.0100, L500.4050, L501.9520, L700.6800 #### [facility] [address] [place], [address] T PROT 7.4 g/dL Normal 5.9-8.4 [facility] Comment on above: Performed By: #### L 100.0100, L500.4050, L501.9520, L700.6800 #### [facility] [address] [place], [address] Urea nitrogen [Mass/Vol] 9 mg/dL Normal 4-19 [facility] Comment on above: Performed By: #### L 100.0100, L500.4050, L501.9520, L700.6800 #### [facility] [address] [place], [address] Electrocardiogram reportOrde red By: Devin Vaughn on 02-13-2025 EKG study [facility] Cardiovascular Services [address] [place] [address] 12 Lead EKG 02/13/25 1438 MR#: [id number] Acct: [id number] Name: MILA GARCIA Rep #:[id number] : 1985 39 From: Devin Vaughn MD Attending Dr: Status: DEP E R Ordering Dr: Jose Ramon Smiley MD Date: Location: ED Sex: F C Admitted: Test Reason : Blood Pressure : */* mmHG Vent. Rate : 89 BPM Atrial Rate : 89 BPM P-R Int : 136 ms QRS Dur : 82 ms QT Int : 362 ms P-R-T Axes : 29 53 22 degrees QTcB Int : 440 ms Normal sinus rhythm Normal ECG Confirmed by DEVIN VAUGHN MD ([id number]), editor greeting card DORIS KRUSE ([id number]) on 510:53:36 AM Referred By: AR Confirmed By: DEVIN VAUGHN MD 02/14/25 1053 Date _ Devin Vaughn MD CC: JADEN Tejada; Dr. Jose Ramon Smiley MD ~ Signed [facility] Other Emergency Department Summary on 02-13-2025 Emergency Department Summary [facility] Medical Records Department [address] [place] [address] Emergency Department Summary 02/13/25 MR#: [id number] Acct: [id number] Name: MILA GARCIA Rep #: [id number] : 1985 39 From: Jose Ramon Smiley MD PCP: JADEN Lee Status:REG ER Location: ED HPI History of Present Illness Chief Complaint: Abn Labs Narrative Narrative: 39-year-old female who denies significant past medical history presents with her because of fevers that she has had for the last 12 days. She relates history that she started to not feel well on February 01. That was a . She noticed that she started having fevers. She takes Advil once a day. She denies any cough or shortness of breath, no dysuria or hematuria, no exacerbating or alleviating factors. She followed up with her primary care provider the following Wednesday and had laboratory work done. They noticed that on Wednesday she had a very low TSH, at 0.4. She continued to have fevers. She noticed that her neck was slightly swollen in the area of her thyroid. She had an ultrasound performed today at 1 PM, as an outpatient. She then proceeded to report to the emergency department regarding her continued fevers at the direction of the high lighter, Dr. Fajardo. [facility] Medical History Abnormal laboratory test Allergy/AdvReac Type Severity Reaction Status Date / Time No Known Allergies Allergy Verified 02/13/25 13:57 Social History Smoking Status: Never smoker ROS ROS ED ROS Narrative Review of systems positive for fevers as high as 101 ???F. Positive swelling of neck/thyroid. Mild difficulty swallowing/pain with swallowing. Denies cough or shortness of breath, no dysuria or hematuria. EXAM Physical Exam Narrative Exam Narrative: Afebrile. Vital signs noted. Nontoxic-appearing. HEENT examination does show mild swelling of thyroid area without crepitance. Neck soft and supple otherwise. Cardiovascular examination reveals mild tachycardia. Lungs clear to auscultation bilaterally. Abdomen soft nontender with positive bowel sounds. No guarding or rebound. Neurological examination nonfocal, nonlateralizing. No noted pedal edema. Const Vital Signs: 02/13/25 13:57 02/13/25 14:12 02/13/25 15:27 Temperature 98.2 F Temperature Source Oral Pulse Rate 107 H 84 Respiratory Rate 16 16 Respiratory Effort Normal Non-Labored Blood Pressure 103/88 H 105/58 L Blood Pressure Mean 93 73 Pulse Ox 98 98 Oxygen Delivery Method Room Air Room Air MDM MDM MDM Narrative Medical decision making narrative: Differential diagnosis includes but not limited to thyroiditis/thyroid storm versus dehydration versus other electrolyte abnormality. I reviewed her prior records. Her outpatient ultrasound has not been read as of yet. I will repeat a TSH. WBC count was obtained and reviewed. It is normal at 5.3, hemoglobin 11.9, hematocrit 36.0, platelet count normal at 371. CMP is significant for creatinine of 0.63, glucose 99. ALT slightly elevated 44 which I think is nonspecific, TSH is low at 0.007 with T4 of 15.7 and free T3 elevated at 9.1. Serum is negative. As I have not read the ultrasound as an outpatient, I did obtain CT of the soft tissue neck. On radiology report review, she has heterogeneous enhancement of the thyroid gland consistent with thyroiditis. Chest x-ray obtained to rule out pneumonia interpreted by myself independently shows no evidence of pneumonia or consolidation. I do not feel antibiotics are indicated. She is showing no clinical signs of a pneumonia or upper respiratory tract infection as well. EKG was obtained and interpreted by myself independently as normal sinus rhythm at 89 bpm without ectopy or acute ST changes. No STEMI, no tachycardia. In discussion with the patient, she was started on methimazole 5 mg by her primary care provider. I discussed the patient with endocrinology, Dr. Antonio Fajardo. She suggested increasing this to 10 mg daily, and her office will contact the patient tomorrow for close follow-up. It was not felt that she required antibiotics or admission to the hospital. Return instructions to the emergency department were reviewed. Disposition is discharged home in stable condition. History Record Review Discussion w/independent historian: Patient Additional record(s) reviewed:: No prior records Lab Data Attestation: I reviewed the patient's lab results. Labs: Laboratory Results - last 24 hr 02/13/25 14:10 WBC 5.3 RBC 4.21 Hgb 11.9 L Hct 36.0 L MCV 85.5 MCH 28.3 MCHC 33.1 RDW Std Deviation 36.4 RDW Coeff of Hung 11.7 Plt Count 371 MPV 10.4 Immature Gran % (Auto) 0.200 Neut % (Auto (more content not included)... Normal [facility] Eosinophil percentageOrdered By: Jose Ramon Smiley on 02-13-2025 Eosinophils/100 WBC (Bld) 0.9 % 0-5 [facility] Erythrocyte distribution wid th ratioOrdered By: Jose Ramon Smiley on 02-13-2025 Erythrocyte distribution width (RBC) [Ratio] 11.7 % 11.6-14.6 [facility] Erythrocyte distribution wid th standard deviationOrdered By: Jose Ramon Smiley on 02-13-2025 Erythrocyte distribution width (RBC) [Ratio] 36.4 fl 35.1-43.9 [facility] Free T3on 02-13-2025 Free T3 [Mass/Vol] 9.1 pg/mL High 2.18-3.98 [facility] Comment on above: Performed By: #### L 100.0100, L500.4050, L501.9520, L700.6800 #### [facility] [address] [place], [address] Free [id number] By: Jose Ramon castillo on 02-13-2025 Free T3 [Mass/Vol] 9.1 pg/mL High 2.18-3.98 [facility] Glomerular filtration rate ( GFR) estimation/1.73 sq m using serum, plasma, or whole bOrdered By: Jose Ramon Smiley on 02-13-2025 GFR/1.73 sq M.predicted among non-blacks MDRD (S/P/Bld) [Vol rate/Area] 114 mL/min/{1.73_m2} >60 [facility] Comment on above: mL/min/1.73m2 CKD-EP I Creatinine Equation (2020) Hematocrit Auto (Bld) [Volum e fraction]Ordered By: Jose Ramon Smiley on 02-13-2025 Hematocrit (Bld) [Volume fraction] 36.0 % Low 37-47 [facility] Hemoglobin measurementOrdere d By: Jose Ramon Smiley on 02-13-2025 Hemoglobin (Bld) [Mass/Vol] 11.9 g/dL Low 12.0-15.0 [facility] Immature granulocytes/100 WB C Auto (Bld)Ordered By: Jose Ramon Smiley on 02-13-2025 Immature granulocytes/100 WBC (Bld) 0.200 % 0.0-0.9 [facility] Comment on above: IG% - Immature Granu locytes (promyelocytes, myelocytes and metamyelocytes) > 1% indicates that a LEFT SHIFT is Present. Ketones Test strip Ql (U)Ord ered By: Jose Ramon Smiley on 02-13-2025 Ketones Ql (U) Negative Negative [facility] - Chemistry and C hemistry - challengeOrdered By: Jose Ramon Smiley on 02-13-2025 AST [Catalytic activity/Vol] 27 U/L <32 [facility] MCV (mean corpuscular volume ) determinationOrdered By: Jose Ramon Smiley on 02-13-2025 MCV (RBC) [Entitic vol] 85.5 fL 81-99 [facility] Mean corpuscular hemoglobin (MCH) determinationOrdered By: Jose Ramon Smiley on 02-13-2025 MCH (RBC) [Entitic mass] 28.3 pg 27.0-32.0 [facility] Mean corpuscular hemoglobin concentration (MCHC) determinationOrdered By: Jose Ramon Smiley on 02-13-2025 MCHC (RBC) [Mass/Vol] 33.1 g/dL 32-36 [facility] Mean platelet volume determi nationOrdered By: Jose Ramon Smiley on 02-13-2025 Platelet mean volume (Bld) [Entitic vol] 10.4 fL 6.2-12.0 [facility] Microscopic analysis of urin e for red blood cells (RBC)Ordered By: Jose Ramon Smiley on 02-13-2025 Microscopic analysis of urine for red blood cells (RBC) 0-5 SEEN /hpf 0-5 [facility] Monocyte percentageOrdered B y: Jose Ramon Smiley on 02-13-2025 Monocytes/100 WBC (Bld) 14.2 % High 0-10 [facility] Mucus LM Ql (Urine sed)Order ed By: Jose Ramon Smiley on 02-13-2025 Mucus Ql (Urine sed) 0 SEEN /hpf [facility] Neutrophil percentageOrdered By: Jose Ramon Smiley on 02-13-2025 Neutrophils/100 WBC (Bld) 42.7 % Low 47-70 [facility] Nitrite Test strip Ql (U)Ord ered By: Jose Ramon Smiley on 02-13-2025 Nitrite Ql (U) Negative Negative [facility] Nucleated red blood cell per centageOrdered By: Jose Ramon Smiley on 02-13-2025 Nucleated RBC/100 WBC (Bld) [Ratio] 0 % 0-5 [facility] Platelet countOrdered By: Jones Smiley on 02-13-2025 Platelets (Bld) [#/Vol] 371 10*3/uL 150-450 [facility] Potassium measurement (mass/ volume)Ordered By: Jose Ramon Smiley on 02-13-2025 Potassium (Unsp spec) [Mass/Vol] 4.1 mmol/L 3.3-5.1 [facility] ,Serum,hCG Quali.on 02-13-2025 HCG, SERUM QUAL Negative Normal [facility] Comment on above: Performed By: #### L 100.0100, L500.4050, L501.9520, L700.6800 #### [facility] [place], [address] Protein Test strip Ql (U)Ord ered By: Jose Ramon Smiley on 02-13-2025 Protein Ql (U) Negative Negative [facility] RBC Auto (Bld) [#/Vol]Ordere d By: Jose Ramon Smiley on 02-13-2025 RBC (Bld) [#/Vol] 4.21 10*6/uL 4.2-5.4 [facility] Serum beta-hCG test, qualita tiveOrdered By: Jose Ramon Smiley on 02-13-2025 Beta HCG ( test) Ql Negative [facility] Serum creatinine measurement (mass/volume)Ordered By: Jose Ramon Smiley on 02-13-2025 Creatinine [Mass/Vol] 0.63 mg/dL Low 0.70-1.20 [facility] Serum globulin measurementOr dered By: Jose Ramon Smiley on 02-13-2025 Globulin (S) [Mass/Vol] 3.5 g/dL 2.2-4.2 [facility] Serum glucose measurement (m ass/volume)Ordered By: Jose Ramon Smiley on 02-13-2025 Glucose [Mass/Vol] 99 mg/dL 70-99 [facility] Serum or plasma alanine maldonado otransferase (ALT) measurementOrdered By: Jose Ramon Smiley on 02-13-2025 ALT [Catalytic activity/Vol] 44 U/L High <35 [facility] Serum or plasma albumin kay urement (mass/volume)Ordered By: Jose Ramon Smiley on 02-13-2025 Albumin [Mass/Vol] 3.9 g/dL 3.5-5.0 [facility] Serum or plasma albumin/glob ulin mass ratioOrdered By: Jose Ramon Smiley on 02-13-2025 Albumin/Globulin [Mass ratio] 1.1 {ratio} 0.9-2.4 [facility] Serum or plasma alkaline anu sphatase measurementOrdered By: Jose Ramon Smiley on 02-13-2025 ALP [Catalytic activity/Vol] 68 U/L 35-104 [facility] Serum or plasma calcium kay urement (mass/volume)Ordered By: Jose Ramon Smiley on 02-13-2025 Calcium [Mass/Vol] 9.5 mg/dL 7.6-11.0 [facility] Serum or plasma urea nitroge n measurement (mass/volume)Ordered By: Jose Ramon Smiley on 02-13-2025 Urea nitrogen [Mass/Vol] 9 mg/dL 4-19 [facility] Sodium levelOrdered By: Jose Ramon Smiley on 02-13-2025 Sodium [Moles/Vol] 138 mmol/L 133-145 [facility] Soft Tissue Neck WITH Contra ston 02-13-2025 Soft Tissue Neck WITH Contrast [facility] Imaging Services [address] [place], [place] [address] Soft Tissue Neck WITH Contrast MR#: [id number] Acct: [id number] Name: MILA GARCIA Rep #: [id number] : 1985 F 39 From: Maycol Lieberman MD PCP: JADEN Lee Status: REG ER Study: Soft Tissue Neck WITH Contrast Date of Exam: Exam# [id number] Ordering Dr: Jose Ramon Smiley MD PROCEDURE: SOFT TISSUE NECK WITH CONTRAST 02/13/2025 REASON FOR EXAM: THYROID SWELLING TECHNIQUE: Procedure Code: CTNEW Modality: CT Procedure: SOFT TISSUE NECK WITH CONTRAST CONTRAST: Isovue 370 VOLUME: 34 mL One or more dose reduction techniques were used (e.g., Automated exposure control, adjustment of the mA and/or kV according to patient size, use of iterative reconstruction technique). RADIATION DOSE SUMMARY: CTDlvol: 16 mGy DLP: 496 mGycm COMPARISON: None FINDINGS: Airway: Midline and patent. Salivary glands: Unremarkable. Lymph nodes: No cervical lymphadenopathy. Thyroid: Heterogeneous enhancement of the thyroid gland without discrete focal mass. Vasculature: A bovine arch is present, a normal variant. Blood vessels are otherwise patent. Orbits: Normal Paranasal sinuses and mastoids: Clear Lung apices: Clear Upper mediastinum: Soft tissue density in the anterior superior mediastinum is non-specific. The imaged portion is 2.5 x 1.5 cm. Bones: Straightened CT/Soft Tissue Neck WITH Contrast IMPRESSION: 1. Mildly heterogeneous enhancement of the thyroid gland. No mass. Non-specific. This can be seen with thyroiditis. Correlate with lab values. 2. No cervical mass or lymphadenopathy. 3. Partially imaged soft tissue density in the anterior superior mediastinum. 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 Non-specific. Nonemergent dedicated chest CT may be helpful. Thymoma has been associated with myasthenia gravis. Reading Location: [id number] CC: SPLITTING MACHINE OPERATOR HELPER-C Pearl Tejaad; Dr. Jose Ramon Smiley MD Waiter/Waitress Informal: Signed Normal [facility] Squamous epithelial cells de tection in urine sediment by light microscopyOrdered By: Jose Ramon Smiley on 02-13-2025 Epithelial cells.squamous LM Ql (Urine sed) 0-5 SEEN /hpf 5-10 [facility] T4 Total, Thyroxinon 025 T4 [Mass/Vol] 15.7 ug/dL High 4.8-13.9 [facility] Comment on above: Performed By: #### L 100.0100, L500.4050, L501.9520, L700.6800 #### [facility] [address] [facility] [place], [address] TSH DL <= 0.005 mIU/L QnOrde red By: Jose Ramon Smiley on 02-13-2025 TSH Qn 0.007 uIU/mL Low 0.300-4.200 [facility] Thyroidon 02-13-2025 Thyroid [facility] Imaging Services [address] [place] [address] Thyroid MR#: [id number] Acct: [id number] Name: MILA GARCIA Rep #: [id number] : 1985 F 39 From: Isaac flores MD PCP: JADEN Lee Status: REG CLI Study: Thyroid Date of Exam: 02/13/25 Exam# [id number] Ordering Dr: Pearl Tejada PROCEDURE: THYROID 02/13/2025 REASON FOR EXAM: ACUTE THYROIDITIS TECHNIQUE: Procedure Code: USTHY Modality: US Procedure: THYROID COMPARISON: Prior CT scan of the neck dated February 13, 2025. FINDINGS: Right thyroid lobe size: 4.8 cm by 2 cm x 1.9 cm Left thyroid lobe size: 4.1 cm 1.5 cm 1.7 cm cm Isthmus: 0.7 cm Background parenchymal echotexture is heterogeneous echotexture. There are no thyroid nodules seen. Increased vascularity. US/Thyroid IMPRESSION: Heterogeneous echotexture of both lobes of the thyroid gland without in the nodular densities seen. RECOMMENDATION: Based on most suspicious nodule. Nodule size = largest diameter Only evaluate nodule if =>5 mm. Growth > 20% in 2 dimensions = worsening. Follow up to 4 nodules. Recommend biopsy for no more than 2 nodules. Reading Location: [place] [address] CC: JADEN Tejada Waiter/Waitress Informal: Signed Normal [facility] Thyroid Stim Hormone (TSH)on 02-13-2025 TSH 0.007 uIU/mL Low 0.300-4.200 [facility] Comment on above: Performed By: #### L 100.0100, L500.4050, L501.9520, L700.6800 #### [facility] [address] [place], [place], [id number] ThyroxineOrdered By: Jose Ramon carlos on 02-13-2025 T4 [Mass/Vol] 15.7 ug/dL High 4.8-13.9 [facility] Total proteinOrdered By: Chio Smiley on 02-13-2025 Protein [Mass/Vol] 7.4 g/dL 5.9-8.4 [facility] Urinalysis, Completeon 02-13 EPI,SQUAMOUS 0-5 SEEN Normal -10 [facility] Comment on above: Order Comment: CLEAN CATCH Performed By: #### L 400.0001 #### [facility] [address] [place], [place], [id number] [phone] 0-5 SEEN Normal 0-5 [facility] Comment on above: Order Comment: CLEAN CATCH Performed By: #### L 400.0001 #### [facility] [address] [place], [address] WBC 0-5 SEEN Normal 0-5 [facility] Comment on above: Order Comment: CLEAN CATCH Performed By: #### L 400.0001 #### [facility] [address] [place], [address] BACTERIA 0 SEEN Normal None Seen [facility] Comment on above: Order Comment: CLEAN CATCH Performed By: #### L 400.0001 #### [facility] [address] [place], [address] Mucus Ql (Urine sed) 0 SEEN Normal [facility] Comment on above: Order Comment: CLEAN CATCH Performed By: #### L 400.0001 #### [facility] [address] [place], [address] Urine clarityOrdered By: Chio Smiley on 02-13-2025 Clarity (U) Clear Clear [facility] Urine color determinationOrd ered By: Jose Ramon Smiley on 02-13-2025 Color (U) Yellow Yellow [facility] Urine glucose detectionOrder ed By: Jose Ramon Smiley on 02-13-2025 Glucose Ql (U) Normal mg/dl Normal [facility] Urine leukocyte esterase det ection by dipstickOrdered By: Jose Ramon Smiley on 02-13-2025 Leukocyte esterase Test strip Ql (U) Negative Negative [facility] Urine pHOrdered By: Jose Ramon barboza on 02-13-2025 pH (U) 6.0 [pH] 5.0 - 8.0 [facility] Urine sediment bacteria coun t by microscopy (number/high power field)Ordered By: Jose Ramon Smiley on 02-13-2025 Bacteria LM.HPF (Urine sed) [#/Area] 0 /[HPF] None Seen [facility] Urine specific gravity measu rementOrdered By: Jose Ramon Smiley on 02-13-2025 Specific gravity (U) [Rel density] 1.010 1.002-1.030 [facility] Urine urobilinogen measureme ntOrdered By: Jose Ramon Smiley on 02-13-2025 Urobilinogen Ql (U) Normal mg/dl Normal [facility] White blood cell (WBC) count Ordered By: Jose Ramon Smiley on 02-13-2025 WBC (Bld) [#/Vol] 5.3 10*3/uL 4.4-11.0 [facility] White blood cell countOrdere d By: Jose Ramon Smiley on 02-13-2025 White blood cell count 0-5 SEEN /hpf 0-5 [facility] PELVIS 1 or 2 VIEWSon 2023 PELVIS 1 or 2 VIEWS [place] [id number] Patient: MILA GARCIA Phone#: : 1985 Age: 38 Gender: F Pt. Type: Out Account: [id number] Location: Ordering: SCOT YENEL Exam Date: 02/28/2024/10:46 Family Phys: ANA ROSA SANCHEZ Charge Code: 024774 Physician: Eaton Order #: [id number] Dose#: PROCEDURE: X-RAY PELVIS AP COMPARISON: None. INDICATIONS: Mechanical low back pain. FINDINGS: BONES: At the level of S4 the distal sacrum is dorsally displaced 0.5 cm. There is associated callus formation at this level. This appears to represent a chronic healed fracture. SOFT TISSUES: Negative. No visible soft tissue swelling. EFFUSION: None visible. OTHER: Negative. CONCLUSION: 1. Remote mid sacral fracture. Distal sacrum is dorsally subluxed. There is evidence of interval healing with callus formation. Dictated by: Leana Rivera MD on 02/28/2024 at 12:26 Approved by: Leana Rivera MD on 02/28/2024 at 12:29 Normal [facility] SACRUM AND COCCYXon 02-28-20 SACRUM AND COCCYX [address] [address] Patient: MILA GARCIA Phone#: : 1985 Age: 38 Gender: F Pt. Type: Out Account: [id number] Location: Ordering: SCOT YOUNG Exam Date: 02/28/2024/10:49 Family Phys: ANA ROSA DANIEL Charge Code: 582158 Physician: Eaton Order #: [id number] Dose#: PROCEDURE: X-RAY SACRUM AND COCCYX MIN 2 VIEWS COMPARISON: None. INDICATIONS: Mechanical low back pain. FINDINGS: BONES: Evidence of remote fracture of the mid sacrum. At the level of S4 the posterior aspect of the distal sacrum is dorsally displaced 0.5 cm. There is evidence of bridging callus formation indicating remote trauma. There is degenerative osteophyte spurring at the sacrococcygeal junction. PARASPINOUS: Negative. No paraspinous abnormality is seen. OTHER: Negative. CONCLUSION: 1. Evidence of mid sacral fracture. Distal sacrum is dorsally subluxed. There is bridging callus formation. Dictated by: Laena Rivera MD on 02/28/2024 at 12:29 Approved by: Leana Rivera MD on 02/28/2024 at 12:35 Normal [facility] MR LUMBAR SP WO CONTRASTon 0 11-15-2023 MR LUMBAR SP WO CONTRAST [place] [address] Patient: MILA GARCIA Phone#: : 1985 Age: 38 Gender: F Pt. Type: Out Account: [id number] Location: Ordering: DR. ELIS GOULD D.C. Exam Date: 11/15/2023/8:01 Family Phys: Charge Code: [id number] Physician: Eaton Order #: [id number] Dose#: PROCEDURE: MRI LUMBAR SPINE WITHOUT CONTRAST COMPARISON: None. INDICATIONS: Lumbar sacral pain TECHNIQUE: A variety of imaging planes and parameters were utilized for visualization of suspected pathology. FINDINGS: PARASPINAL AREA: Normal with no visible mass. BONES: No fracture, pars defect, or osseous lesion. Mildly patchy marrow pattern. Correlate with history of anemia or smoking. CORD/CAUDA EQUINA: Normal caliber, contour, and signal intensity. LUMBAR DISC LEVELS: L1-L2: No significant disc/facet abnormality, spinal stenosis, or foraminal stenosis. L2-L3: No significant disc/facet abnormality, spinal stenosis, or foraminal stenosis. L3-L4: No significant disc/facet abnormality, spinal stenosis, or foraminal stenosis. L4-L5: Bony hypertrophy is present at the articular facettes. L5-S1: Disc space narrowing is present. There is disc degeneration. There is minimal retrolisthesis at L5 on S1. Broad-based disc bulging is present. There is mild bilateral foraminal narrowing. CONCLUSION: 1. L5-S1 broad-based disc bulge. There is disc degeneration. Mild bilateral foraminal narrowing is present. Dictated by: Dory Contreras MD on 11/16/2023 at 14:07 Approved by: Dory Contreras MD on 11/16/2023 at 14:10 Normal [facility] US BREAST RIGHT LIMITEDon US BREAST RIGHT LIMITED ORIGINAL FROM: [facility] [address] [place] [id number] PROCEDURE FOR: MILA GARCIA [address] [place] [address] Home: PID#: [id number] Exam#: [id number] : 1985 Age: 36 TO: STEF MAXWELL MARKETING AND COMMUNICATIONS OFFICER GEL COAT SPRAYER [address] [place], [place] [address] EXAMINATION: ULTRASOUND OF THE right breast 11/10/2021 8:44 am TECHNIQUE: Color flow and real-time targeted ultrasound of the upper outer quadrant were performed. COMPARISON: Mammogram November 05, 2021 HISTORY: ORDERING SYSTEM PROVIDED HISTORY: Reason for Exam: CALL BACK MAMMO FINDINGS: There is a 1.5 cm mixed echogenic oval mass with relatively circumscribed margins within the right breast at 9 o'clock middle to posterior depth. This probably correlates with the mammographic finding. No intrinsic vascularity. IMPRESSION: The 1.5 cm mixed echogenic oval mass within the right breast may represent fat necrosis and appears probably benign. A three-month follow-up right breast ultrasound and right diagnostic mammogram is recommended. BIRADS: MAMMOGRAM BI-RADS: 3: Probably benign RECALL: 3 month follow-up RECALL TYPE: Right mammo+US LETTER SENT: Probably Benign BI-RADS 3 Interpreted by: Tory Cagle MD Preliminary Report By: Tory Cagle MD Electronically signed By Tory Cagle MD Dictated Date: 11/10/2021 7:38:00 PM Prelim Date: 11/10/2021 7:41:59 PM Sign Date: 11/10/2021 7:41:59 PM Ordering Provider: PIERRE REFERRING Glass Cutting Machine Feeder: CINDY [place] RT(R) RDMS letter sent: Probably Benign BI-RADS 3 Ultrasound BI-RADS: 3 Probably benign Normal [facility] ([place]) MA MAMMOGRAM SCREENING BILAT ERAL W/TOMOon 11-05-2021 MA MAMMOGRAM SCREENING BILATERAL W/ZAKIA ORIGINAL FROM: [facility] [address] [place] [address] PROCEDURE FOR: MILA GARCIA [address] [place] [address] Home: PID#: [id number] Exam#: [id number] : 1985 Age: 36 TO: STEF MAXWELL APRN GEL COAT SPRAYER [address] [place], [place] [address] EXAMINATION: SCREENING DIGITAL BILATERAL MAMMOGRAM WITH TOMOSYNTHESIS, 11/05/2021 2:31 pm TECHNIQUE: Screening mammography of the bilateral breasts was performed with tomosynthesis. 2D standard and 3D tomosynthesis combination imaging performed through both breasts in the MLO and CC projection. Computer aided detection was utilized in the interpretation of this exam. COMPARISON: None. HISTORY: Breast cancer screening. FINDINGS: BREAST DENSITY: Heterogeneously dense There is a 1.6 cm round mass in the right breast at 9 o'clock posterior depth. This is confirmed on additional tomographic views. There are no other significant masses, calcifications, or other findings. IMPRESSION: The 1.6 cm round mass in the right breast at 9 o'clock appears indeterminate. A right breast ultrasound is recommended. We will contact the patient to arrange for the exam. BIRADS: MAMMOGRAM BI-RADS: 0: Needs addl evaluation RECALL: immediate RECALL TYPE: Right US LETTER SENT: Abnormal-Needs additional work up BI-RADS 0 Interpreted by: Jae Boyd MD Preliminary Report By: Jae Boyd MD Electronically signed By Jae Boyd MD Dictated Date: 11/05/2021 3:44:01 PM Prelim Date: 11/05/2021 3:48:16 PM Sign Date: 11/05/2021 3:48:16 PM Ordering Provider: PIERRE REFERRING CLINICAL: BASELINE. Glass Cutting Machine Feeder: SHILPA CALDERON RT(R) (M) letter sent: Abnormal-Needs additional work up BI-RADS 0 Mammogram BI-RADS: 0 Indeterminate Normal [facility] ([place]) Vital Signs Date Time Vital Sign Value Performing Clinician Yary ricardo 02-13-2025 16:23-0400 Body temperature 99 [degF] Pearl Casbohm SPLITTING MACHINE OPERATOR HELPER-C Work Phone: [facility] 02-13-2025 16:23-0400 Diastolic blood pressure 79 mm[Hg] Pearl Casbohm SPLITTING MACHINE OPERATOR HELPER-C Work Phone: [facility] 02-13-2025 16:23-0400 Heart rate 90 /min Pearl Casbohm SPLITTING MACHINE OPERATOR HELPER-C Work Phone: [facility] 02-13-2025 16:23-0400 Respiratory rate 18 /min Pearl Casbohm SPLITTING MACHINE OPERATOR HELPER-C Work Phone: [facility] 02-13-2025 16:23-0400 SaO2% (BldA) [Mass fraction] 99 % Eparl Casbohm SPLITTING MACHINE OPERATOR HELPER-C Work Phone: [facility] 02-13-2025 16:23-0400 Systolic blood pressure 123 mm[Hg] Pearl Casbohm SPLITTING MACHINE OPERATOR HELPER-C Work Phone: [facility] 02-13-2025 13:57-0400 Body height 165.1 cm Pearl Casbohm SPLITTING MACHINE OPERATOR HELPER-C Work Phone: [facility] 02-13-2025 13:57-0400 Body mass index (BMI) [Ratio] 26.2 kg/m2 Pearl Stanbohm SPLITTING MACHINE OPERATOR HELPER-C Work Phone: [facility] 02-13-2025 13:57-0400 Body weight 71.62 kg Pearl Stanbohm SPLITTING MACHINE OPERATOR HELPER-C Work Phone: [facility] Encounters Encounter Date Encounter Type Care Provider Facility Start: 03-26-2025 ambulatory Pearl Willishm Facility: [facility] Start: 03-09-2025 End: 03-09-2025 ambulatory OMID NUÑEZ MD Facility:A Start: 03-09-2025 End: 03-09-2025 Patient encounter procedure OMID NUÑEZ MD [facility] Start: 02-13-2025 End: 02-13-2025 Emergency department patient visit Dr. Jose Ramon Smiley MD -Emergency Department Work Phone: Start: 02-13-2025 End: 02-13-2025 Patient encounter procedure Pearl Tejada SPLITTING MACHINE OPERATOR HELPER-C -Ultrasound [facility] Work Phone: Start: 02-13-2025 End: 02-13-2025 ambulatory Pearl Standennissonia Facility:[facility] Start: 02-28-2024 End: 02-28-2024 [facility] Start: 11-15-2023 End: 11-15-2023 ambulatory ELIS Milian GOULD [facility] [place] Start: 11-10-2021 End: 11-10-2021 Patient encounter procedure PHY WO ID REFERRING [facility] Start: 11-05-2021 End: 11-05-2021 Patient encounter procedure PHY WO ID REFERRING [facility] Procedures Date Procedure Procedure Detail Performing Clinician Start: 02-13-2025 Urnls dip stick/tabl et reagent auto microscopy Pearl Stanbohm SPLITTING MACHINE OPERATOR HELPER-C Work Phone: Start: 02-13-2025 CT of soft tissues o f neck with contrast Pearl Tejada SPLITTING MACHINE OPERATOR HELPER-C Work Phone: Start: 02-13-2025 Plain chest X-ray Pearl Tejada SPLITTING MACHINE OPERATOR HELPER-C Work Phone: Start: 02-13-2025 Estimated creatinine clearance Pearl Tejada SPLITTING MACHINE OPERATOR HELPER-C Work Phone: Start: 02-13-2025 US scan of thyroid Froy Tejada SPLITTING MACHINE OPERATOR HELPER-C Work Phone: Plan of Treatment Date Care Activity Detail Author Start: 02-13-2025 [facility] Patient Education Diagnosing a T hyroid Problem Common Thyroid Problems ED Fever Control (Adult) [facility] Work Phone: Payers Date Payer Category Payer Self-pay 2025 Unknown [id number] 1985 Unknown [id number] [id number] [id number] 1985 Unknown [id number] [id number] Unknown Unknown [id number] Unknown [id number] 2.16.8 [id number] Unknown [id number] [id number] [id number] Unknown [id number] 2.16.8 [id number] Social History Date Type Detail Facility Start: [facility]-13-[facility] Sex Female [facility] Start: 1985 Sex Assigned At Female [facility] Tobacco smoking status [facility] Start: 03-01-2006 Sex Female (finding) [facility] Mental Status Date Assessment Result Facility 02-13-2025 Cognitive function Level Of Consciousness Awake [facility] Work Phone: Clinical Notes 11-05-2021 to 03-09-2025 Laboratory Note Date & Type Note Facility 03-09-2025 Evaluation + Plan note Diagnostic Tests PendingThyroid Stim Immunoglobulin 03/09/25 Future Scheduled TestsThyroid Stim Immunoglobulin 03/07/25Free T4 03/07/25Complete Blood Count 03/07/25Free T3 03/07/25Complete Metabolic Panel 03/07/25 [facility] 02-13-2025 Discharge summary [facility] 02-13-2025 Radiology Diagnostic study note [facility] Imaging Services [address] [place], [place] [address] Soft Tissue Neck WITH Contrast MR#: [id number] Acct: [id number] Name: MILA GARCIA Rep #: [id number] : 1985 F 39 From: Sunita Lieberman MD PCP: JADEN Lee Status: REG ER Study:Soft Tissue Neck WITH Contrast Date of Exam: 02/13/25 Exam# [id number] Ordering Dr: Jose Ramon Smiley MD PROCEDURE: SOFT TISSUE NECK WITH CONTRAST 02/13/2025 REASON FOR EXAM: THYROID SWELLING TECHNIQUE: Procedure Code: CTNEW Modality: CT Procedure: SOFT TISSUE NECK WITH CONTRAST CONTRAST: Isovue 370 VOLUME: 34 mL One or more dose reduction techniques were used (e.g., Automated exposure control, adjustment of the mA and/or kV according to patient size, use of iterative reconstruction technique). RADIATION DOSE SUMMARY: CTDlvol: 16 mGy DLP: 496 mGycm COMPARISON: None FINDINGS: Airway: Midline and patent. Salivary glands: Unremarkable. Lymph nodes: No cervical lymphadenopathy. Thyroid: Heterogeneous enhancement of the thyroid gland without discrete focal mass. Vasculature: A bovine arch is present, a normal variant. Blood vessels are otherwise patent. Orbits: Normal Paranasal sinuses and mastoids: Clear Lung apices: Clear Upper mediastinum: Soft tissue density in the anterior superior mediastinum is non-specific. The imaged portion is 2.5 x 1.5 cm. Bones: Straightened CT/Soft Tissue Neck WITH Contrast IMPRESSION: 1. Mildly heterogeneous enhancement of the thyroid gland. No mass. Non-specific. This can be seen with thyroiditis. Correlate with lab values. 2. No cervical mass or lymphadenopathy. 3. Partially imaged soft tissue density in the anterior superior mediastinum. 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 Non-specific. Nonemergent dedicated chest CT may be helpful. Thymomahas been associated with myasthenia gravis. Reading Location: [facility] CC: SPLITTING MACHINE OPERATOR HELPER-C Pearl Tejada; Dr. Jose Ramon Smiley MD ~ Waiter/Waitress Informal: Signed [facility] 02-13-2025 Radiology Diagnostic study note [facility] Imaging Services [address] [place] [address] Chest 1 View (Portable) MR#: [id number] Acct: [id number] Name: MILA GARCIA Rep #: [id number] : 1985 F 39 From: Irvin Colin MD PCP: JADEN Lee Status: REG ER Study:Chest 1 View (Portable) Date of Exam: 02/13/25 Exam# [id number] Ordering Dr: Jose Ramon Smiley MD PROCEDURE: CHEST 1 VIEW (PORTABLE) 02/13/2025 REASON FOR EXAM: FEVER TECHNIQUE: Frontal view of the chest. FINDINGS: The heart is normal in size. The lungs are clear. No acute osseous abnormalities. RAD/Chest 1 View (Portable) IMPRESSION: No Acute Findings. Reading Location: [address] CC: SPLITTING MACHINE OPERATOR HELPER-Alex Tejada; Dr. Jose Ramon Smiley MD ~ Waiter/Waitress Informal: Signed [facility] 02-13-2025 Discharge summary Note Date/Time February 13, 2025 4:22pm [facility] Medical Records Department [address] [place] [address] Emergency Department Summary 02/13/25 MR#: [id number] Acct: [id number] Name: MILA GARCIA Rep #:[id number] : 1985 39 From: Jose Ramon Smiley MD PCP: JADEN Lee Status:REG ER Location: ED HPI History of Present Illness Chief Complaint: Abn Labs Narrative Narrative: 39-year-old female who denies significant past medical history [facility] fevers that she has had for the last 12 days. She relates history that she started to not feel well on February 01. That was a . She noticed that she started having fevers. She takes Advil once a day. She denies any cough or shortness of breath, no dysuria or hematuria, no exacerbating or alleviating factors. She followed up with her primary care provider the following Wednesday and had laboratory work done. They noticed that on Wednesday she had a very low TSH, at 0.4. She continued to have fevers. Shenoticed that her neck was slightly swollen in the area of her thyroid. She had an ultrasound performed today at 1 PM, as an outpatient. She then proceeded to report to the emergency department regarding her continued fevers at the direction of the high lighter, Dr. Fajardo. [facility] Medical History Abnormal laboratory test Allergy/AdvReac Type Severity Reaction Status Date / Time No Known Allergies Allergy Verified 02/13/25 13:57 Social History Smoking Status: Never smoker ROS ROS ED ROS Narrative Review of systems positive for fevers as high as 101 ?F. Positive swelling of neck/thyroid. Mild difficulty swallowing/pain with swallowing. Denies cough orshortness of breath, no dysuria or hematuria. EXAM Physical Exam Narrative Exam Narrative: Afebrile. Vital signs noted. Nontoxic-appearing. HEENT examination does show mild swelling of thyroid area without crepitance. Neck soft and supple otherwise. Cardiovascular examination reveals mild tachycardia. Lungs clear toauscultation bilaterally. Abdomen soft nontender with positive bowel sounds. No guarding or rebound. Neurological examination nonfocal, nonlateralizing. Nonoted pedal edema. Const Vital Signs: 02/13/25 13:57 02/13/25 14:12 02/13/25 15:27 Temperature 98.2 F Temperature Source Oral Pulse Rate 107 H 84 Respiratory Rate 16 16 Respiratory Effort Normal Non-Labored Blood Pressure 103/88 H 105/58 L Blood Pressure Mean 93 73 Pulse Ox 98 98 Oxygen Delivery Method Room Air Room Air MDM MDM MDM Narrative Medical decision making narrative: Differential diagnosis includes but not limited to thyroiditis/thyroid storm versus dehydration versus other electrolyte abnormality. I reviewed her prior records. Her outpatient ultrasound has not been read as of yet. I will repeat a TSH. WBC count was obtained and reviewed. It is normal at 5.3, hemoglobin 11.9, hematocrit 36.0, platelet count normal at 371. CMP is significant for creatinine of 0.63, glucose 99. ALT slightly elevated 44 which I think is nonspecific, TSH is low at 0.007 with T4 of 15.7 and free T3 elevated at 9.1. Serum is negative. As I have not read the ultrasound as an outpatient, I did obtain CT of the soft tissue neck. On radiology report review, she has heterogeneous enhancement of the thyroid gland consistent with thyroiditis. Chest x-ray obtained to rule outpneumonia interpreted by myself independently shows no evidence of pneumonia or consolidation. I do not feel antibiotics are indicated. She is showing no clinical signs of a pneumonia or upper respiratory tract infection as well. EKG was obtained and interpreted by myself independently as normal sinus rhythm at 89 bpm without ectopy or acute ST changes. No STEMI, no tachycardia. In discussion with the patient, she was started on methimazole 5 mg by her primary care provider. I discussed the patient with endocrinology, Dr. Antonio Fajardo. She suggested increasing this to 10 mg daily, and her office will contact the patient tomorrow for close follow-up. It was not felt that she required antibiotics or admission to the hospital. Return instructions to the emergency department were reviewed. Disposition is discharged home in stable condition. History & Record Review Discussion w/independent historian: Patient Additional record(s) reviewed:: No prior records Lab Data Attestation: I reviewed the patient's lab results. Labs: Laboratory Results - last 24 hr 02/13/25 14:10 WBC 5.3 RBC 4.21 Hgb 11.9 L Hct 36.0 L MCV 85.5 MCH 28.3 MCHC 33.1 RDW Std Deviation 36.4 RDW Coeff of Hung 11.7 Plt Count 371 MPV 10.4 Immature Gran % (Auto) 0.200 Neut % (Auto) 42.7 L Lymph % (Auto) 41.4 H [place] % (Auto) 14.2 H Eos % (Auto) 0.9 Baso % (Auto) 0.6 Absolute Neuts (auto) 2.3 Absolute Lymphs (auto) 2.18 Nucleated RBC % 0 Sodium 138 Potassium 4.1 Chloride 102 Carbon Dioxide 25.6 Anion Gap 10 BUN 9 Creatinine 0.63 L Estim Creat Clear Calc 116.59 Est GFR (MDRD) Non-Af 114 BUN/Creatinine Ratio 15.0 Glucose 99 Calcium 9.5 Total Bilirubin 0.23 AST 27 ALT 44 H Alkaline Phosphatase 68 Total Protein 7.4 Albumin 3.9 Globulin 3.5 Albumin/Globulin Ratio 1.1 TSH 0.007 L Thyroxine (T4) 15.7 H Free T3 pg/dL 9.1 H Serum , Qual NEGATIVE Radiography Diagnostic Testing: Clinical Impression(s) from Imaging Studies Chest X-Ray 02/13/25 14:40 IMPRESSION: No Acute Findings. Reading Location: [address] Soft Tissue Neck CT 02/13/25 15:24 IMPRESSION: 1. Mildly heterogeneous enhancement of the thyroid gland. No mass. Non-specific. This can be seen with thyroiditis. Correlate with lab values. 2. No cervical mass or lymphadenopathy. 3. Partially imaged soft tissue density in the anterior superior mediastinum. 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 Non-specific. Nonemergent dedicated chest CT may be helpful. Thymomahas been associated with myasthenia gravis. Reading Location: [facility] Management Discussion w/another healthcare provider: Light Equipment Operator (Dr. Antonio Fajardo, endocrinology) Discharge Plan Triage Chief Complaint: Abn Labs ED Provider: Jose Ramon Smiley Dx/Rx/DC Orders Clinical Impression: Thyroiditis, Fever, Low TSH level Instructions: Diagnosing a Thyroid Problem, Common Thyroid Problems, ED Fever Control (Adult) Primary Care Provider: Pearl Tejada Referrals: Pearl Tejada NP-C [Primary Care Provider, Family Practice] Antonio Fajardo MD [[facility], Endocrinology] - 3-5 Days Activity Restrictions/Additional Instructions: Dr. Fajardo's office will contact you tomorrow for an appointment to be seen withinthe next few days. Increase your methimazole to 10 mg daily by mouth. Return with sustained high fever, new or worsening symptoms. Print Language: Indonesian Disposition Disposition: Home, Self Care What to do if you have Problems For any increased pain, shortness of breath, bleeding, nausea or vomiting, chestpain, or any unexpected problems, contact your Primary Care Provider. Call [facility] ([phone]) or report to the closest Emergency Room. Call 911 if necessary. 02/13/252 <Electronically signed by Jose Ramon Smiley MD> Cosigner Signature (if applicable): CC: SPLITTING MACHINE OPERATOR HELPERMakenzie Tejada ~ Signed [facility] Work Phone: 1(286) 416-910207-06-2022 Note ORIGINAL FROM: [facility] [address], [place] [address] PROCEDURE FOR: MILA VallecilloRobbin GARCIA [address] [place] [address] Home: PID#: [id number] Exam#: [id number] : 1985 Age: 36 TO: STEF ALISSA MATHEW GEL COAT SPRAYER [address] [place] [id number] EXAMINATION: SCREENING DIGITAL BILATERAL MAMMOGRAM WITH TOMOSYNTHESIS, 11/05/2021 2:31 pm TECHNIQUE: Screening mammography of the bilateral breasts was performed with tomosynthesis. 2D standard and 3D tomosynthesis combination imaging performed through both breasts in the MLO and CC projection. Computer aided detection was utilized in the interpretation of this exam. COMPARISON: None. HISTORY: Breast cancer screening. FINDINGS: BREAST DENSITY: Heterogeneously dense There is a 1.6 cm round mass in the right breast at 9 o'clock posterior depth. This is confirmed on additional tomographic views. There are no other significant masses, calcifications, or other findings. IMPRESSION: The 1.6 cm round mass in the right breast at 9 o'clock appears indeterminate. A right breast ultrasound is recommended. We will contact the patient to arrange for the exam. BIRADS: MAMMOGRAM BI-RADS: 0: Needs addl evaluation RECALL: immediate RECALL TYPE: Right US LETTER SENT: Abnormal-Needs additional work up BI-RADS 0 Interpreted by: Jae Boyd MD Preliminary Report By: Jae Boyd MD Electronically signed By Jae Boyd MD Dictated Date: 11/05/2021 3:44:01 PM Prelim Date: 11/05/2021 3:48:16 PM Sign Date: 11/05/2021 3:48:16 PM Ordering Provider: PIERRE REFERRING CLINICAL: BASELINE. Glass Cutting Machine Feeder: SHILPA CALDERON RT(R) (M) letter sent: Abnormal-Needs additional work up BI-RADS 0 Mammogram BI-RADS: 0 [facility] Note ORIGINAL FROM: [facility] [address], [place] [address] PROCEDURE FOR: MILA PHILLIPSSOLOMON [address] [place] [address] Home: PID#: [id number] Exam#: [id number] : 1985 Age: 36 TO: STEF MAXWELL MARKETING AND COMMUNICATIONS OFFICER GEL COAT SPRAYER [address] [place], [place] [address] EXAMINATION: SCREENING DIGITAL BILATERAL MAMMOGRAM WITH TOMOSYNTHESIS, 11/05/2021 2:31 pm TECHNIQUE: Screening mammography of the bilateral breasts was performed with tomosynthesis. 2D standard and 3D tomosynthesis combination imaging performed through both breasts in the MLO and CC projection. Computer aided detection was utilized in the interpretation of this exam. COMPARISON: None. HISTORY: Breast cancer screening. FINDINGS: BREAST DENSITY: Heterogeneously dense There is a 1.6 cm round mass in the right breast at 9 o'clock posterior depth. This is confirmed on additional tomographic views. There are no other significant masses, calcifications, or other findings. IMPRESSION: The 1.6 cm round mass in the right breast at 9 o'clock appears indeterminate. A right breast ultrasound is recommended. We will contact the patient to arrange for the exam. BIRADS: MAMMOGRAM BI-RADS: 0: Needs addl evaluation RECALL: immediate RECALL TYPE: Right US LETTER SENT: Abnormal-Needs additional work up BI-RADS 0 Interpreted by: Jae Boyd MD Preliminary Report By: Jae Boyd MD Electronically signed By Jae Boyd MD Dictated Date: 11/05/2021 3:44:01 PM Prelim Date: 11/05/2021 3:48:16 PM Sign Date: 11/05/2021 3:48:16 PM Ordering Provider: PIERRE REFERRING CLINICAL: BASELINE. Glass Cutting Machine Feeder: SHILPA CALDERON RT(R) (M) letter sent: Abnormal-Needs additional work up BI-RADS 0 Mammogram BI-RADS: 0 Indeterminate [facility] No data available for this section [facility] Evaluation noteNo assessment information available [facility] Work Phone: Hospital Discharge instructions No data available for this section [facility] Hospital Discharge instructionsAdditional Instructions Dr. Fajardo's office will contact you tomorrow for an appointment to be seen within the next few days. Increase your methimazole to 10 mg daily by mouth. Return with sustained high fever, new or worsening symptoms.[facility] Work Phone: Progress note No data available for this section [facility] Reason for referral (narrative)No reason for referral information [facility]WK[facility] Work Phone: Summary Purpose Family History No Family History Records FoundNo Family History Records FoundNo Family History Records Found No data available for this section No Family History Records Found Advance Directives No Advanced Directives Records Found Advance Directive Response Recorded Date/ Time Do you have a Healthcare Power of Communications Programmer? No February 13, 2025 2:11pm Chief Complaint and Reason for Visit Chief Complaint Admit Date ACUTE THYROIDITIS February 13, 2025 1 2:53pm THYROID ISSUES February 13, 2025 1 :56pm Additional Source Comments Care Team (unrecognized sect ion and content) Care Team Related Persons Name: JUAN RAMON GARCIA Address: Home [id number] Care Team Related Persons Name: JUAN RAMON GARCIA Address: Home [id number] [place] [address] INFORMATION SOURCE (unrecogn ized section and content) DATE CREATED AUTHOR 01/08/[address] [facility] ([place]) DATE CREATED AUTHOR AUTHOR'S ORGANIZ ATION 03/01/2024 [facility] DATE CREATED AUTHOR AUTHOR'S ORGANIZ ATION 03/11/2025 [facility] DATE CREATED AUTHOR AUTHOR'S ORGANIZ ATION 03/13/2025 [facility] Care Teams (unrecognized sec tion and content) Team Status: Active Member Role/Relationship Status Dates JADEN Lee Primary care physician Active Team Status: Inactive Member Role/Relationship Status Dates JADEN Lee Primary care physician Active Start: February 13, 2025 End: February 13, 2025 JAEDN Lee Attending physician Active Start: February 13, 2025 End: February 13, 2025 JADEN Lee Referring Provider Active S tart: February 13, 2025 End: February 13, 2025 Team Status: Inactive Member Role/Relationship Status Dates JADEN Lee Primary care physician Active Start: February 13, 2025 End: February 13, 2025 Jose Ramon Smiley MD Attending physician Active Sta rt: February 13, 2025 End: February 13, 2025 Jose Ramon Smiley MD Emergency Department Physician Activ e Start: February 13, 2025 End: February 13, 2025 Goals (unrecognized section and content) Goals may be documented in a n alternate section FOR RECORDS PERTAINING TO PATIENTS WHO ARE OR HAVE BEEN ENROLLED IN A CHEMICAL DEPENDENCY/SUBSTANCEABUSE PROGRAM, SOME INFORMATION MAY BE OMITTED. This clinical summary was aggregated from multiple sources. Caution should be exercised in using it in the provision of clinical care. This summary normalizes information from multiple sources, and as a consequence, information in this document may materially change the coding, format and clinical context of patient data. In addition, data may be omitted in some cases. CLINICAL DECISIONS SHOULD BE BASED ON THE PRIMARY CLINICAL RECORDS. [facility]. provides no warranty or guarantee of the accuracy or completeness of information in this document.
== END | disposition home or self-care (01) ==
LOC: CT 18:57
PROVIDERS: PCP Nurse Practitioner Family; Referring Provider Nurse Practitioner Family; Visit Provider Nurse Practitioner Family
DX: E32.0 Persistent hyperplasia of thymus (principal)
CPT/HCPCS: 71250